=== PATIENT | female | born 1965 | race Caucasian/White ===

== ENCOUNTER → 2017-10-27 | Outpatient (CLI) | payer BC ==
[~2017-10-27] MED LIST: CYAN10005 PO; FERR1TAB13 PO; LANS15CA6 PO; LEVO88TA3 PO; SERT50TA PO
[2017-10-27 15:02] VITALS: BP 160/95; PULSE 74; TEMP 36.9; O2SAT 98
--- NOTE | 2017-10-27 16:37 | Radiation Oncology Follow-Up ---
Radiation Oncology Follow-Up Date of Visit Oct 27, 2017. Reason For Visit One-month follow-up and cancer survivorship care plan Radiation Completion Date 09/29/17 Diagnosis (1) Breast cancer Status: Acute Onset Date: 01/20/2017 Histology Subtype: Invasive carcinoma Stage: l (A) Permanent Comment: Abnormal right breast mammogram Status post core needle biopsy 01/20/2017 Invasive carcinoma grade 3, multifocal Estrogen receptor negative, progesterone receptor negative, and HER-2/anitha positive Status post needle localization partial mastectomy and sentinel lymph node biopsy 02/15/2017 Stage pT1b pN0 Status post completion of systemic chemotherapy with 6 cycles of Taxotere, carboplatin, and Herceptin She'll continue Herceptin for 1 year Status post completion of radiation therapy 09/29/2017. She received 6640 cGy Last Edited By: Marga Hester on Oct 10, 2017 15:39 History of Present Illness Ms. Hollis presented with an abnormal mammogram on 01/07/2017 which revealed asymmetry in the right breast. The patient was brought back on 01/17/2017 and underwent a right unilateral diagnostic breast mammogram and ultrasound which revealed 2 areas of focal asymmetry at 12: 00 suspicious for abnormality. The patient underwent an ultrasound-guided biopsy of the right breast lesions on and pathology confirmed invasive ductal carcinoma that was grade 3 for both lesions at 12:00 in the right breast. The tumor was estrogen receptor negative, progesterone receptor negative and HER-2 positive. Additionally, there was evidence of ductal carcinoma in situ that was high-grade at both biopsy sites. The patient underwent a right breast lumpectomy and sentinel lymph node biopsy by Dr. Natasha Quezada on 02/15/2017 which revealed multifocal invasive ductal carcinoma that measured 7 mm in the greatest dimension. The invasive ductal carcinoma was grade 3 and there was ductal carcinoma in situ also present which was high-grade. Margins were negative for both invasive ductal carcinoma and ductal carcinoma in situ. There is no evidence of lymphovascular space invasion. 2 sentinel lymph nodes were removed and both were negative for metastatic carcinoma. The patient was staged as pathologic [id number], stage IA. The patient was seen by Dr. Jeff Canales from medical oncology who recommended [facility] chemotherapy with adjuvant Herceptin for a year. We are now seeing the patient in consultation to discuss the role of radiation therapy. She completed her course of chemotherapy. The Herceptin will continue for a year. She return to our office and underwent a CT simulation. She then completed radiation therapy 09/29/2017. She received 6640 cGy. Interim History She has been doing well over the past month. These skin irritation that occurred at the end of treatment has resolved. She denies any masses or tenderness and no change of the axilla. She has had no swelling of her arm. She continues on Herceptin every 3 weeks. She is tolerating this well. She had been a patient of Dr. Vasquez and will be following up with Dr. Ramires. Allergies Coded Allergies: Latex1 -Allergic Contact Dermititis (Verified Allergy, Unknown, RASH, ) Home Medications Scheduled Cyanocobalamin (Vitamin B-12), 2,000 MCG PO DAILY Ferrous Sulfate (Kp Ferrous Sulfate), 1 TAB PO DAILY Lansoprazole (Prevacid), 15 MG PO DAILY Levothyroxine Sodium (Levothyroxine Sodium), 1 TAB PO DAILY Sertraline (Zoloft), 1 TAB PO DAILY Review of Systems Gastrointestinal: Symptoms: WNL Oral: Symptoms: No Problems Respiratory: Symptoms: WNL Urinary: Symptoms: WNL Skin: Symptoms: No Problems Breast: Right Upper Arm Measurement: 27.5 Right Mid Arm Measurement: 22.8 Right Wrist Measurement: 15.5 Left Upper Arm Measurement: 28.3 Left Mid Arm Measurement: 24.0 Left Wrist Measurement: 15.5 Arm Dominence: Right Additional Notes: She completed a distress management report and answered "no" to all questions. Physical Exam Vital Signs Date Time Temp Pulse Resp B/P (MAP) Pulse Ox O2 Delivery O2 Flow Rate FiO2 10/27/17 15:02 36.9 74 16 160/95 98 ECOG Performance Status: 0 Fatigue: None General Appearance: no apparent distress Eyes: normal inspection, EOMI ENT: normal ENT inspection, hearing grossly normal Neck: no adenopathy, thyroid normal Respiratory/Chest: lungs clear, no respiratory distress, no accessory muscle use Breast: Breast examination reveals well-healed incisions of the right breast. There are no masses or tenderness and no axillary adenopathy. She has a small amount of fibrous tissue in the area of the incision. She has resolving hyperpigmentation. There are no skin retractions or nipple changes. Using the [place] score cosmesis she has a good outcome. The left breast showed no masses or tenderness and no axillary adenopathy. Cardiovascular: regular rate, rhythm, no gallop, no murmur Extremities: no pedal edema Neurologic/Psychiatric: no motor/sensory deficits, alert, normal mood/affect Skin: warm/dry Pain Management Patient Reports Pain: No Pain Location: None Patient Preferred Pain Scale: 0 - 10 Initial Pain Intensity: 0.0 Pain Management Plan She denies pain therefore requires no pain management. Laboratory Laboratory Results: not applicable Pathology Pathology Results: not applicable Imaging Imaging Studies: not applicable Assessment & Plan Plan: Continue regular follow-up with Dr. Quezada, Dr. Ramires, and her primary care physician. She will need scheduled for follow-up mammography. She is seeing Dr. Quezada in November and wants to wait till that appointment to get her mammogram scheduled. Today we completed the cancer survivorship care plan. A copy of the document was given to the patient. She was given a survivorship booklet. We asked her to return to our office in 6 months. She may call if she has any questions or concerns in the interim. Total Time In Follow-Up I spent 20 minutes speaking to the patient in performing examination. I spent 20 minutes reviewing information, preparing the survivorship document, and completing this note. Copy To Natasha Quezada MD; Jennifer Pena M.D.; Lonny Ramires M.D. Problem Qualifiers (1) Breast cancer: Breast location: upper outer quadrant of breast Estrogen receptor status: negative Patient sex: female Laterality: right Qualified Codes: C50.411 - Malignant neoplasm of upper-outer quadrant of right female breast; Z17.1 - Estrogen receptor negative status [ER-]
== END | disposition home or self-care (01) ==
LOC: C.ONC 14:47
PROVIDERS: ATTEND Physician Assistant Medical
DX: Z08 Encounter for follow-up examination after completed treatment for malignant neoplasm (principal); Z92.3 Personal history of irradiation; Z85.3 Personal history of malignant neoplasm of breast

== ENCOUNTER → 2018-04-26 | Outpatient (CLI) | payer BC ==
[~2018-04-26] MED LIST changes: +POTA10CA28 PO; +SERT-234 PO
[2018-04-26 13:57] VITALS: BP 135/80; PULSE 65; TEMP 36.5; O2SAT 99
--- NOTE | 2018-04-26 16:09 | Radiation Oncology Follow-Up ---
Radiation Oncology Follow-Up Date of Visit Apr 26, 2018. Reason For Visit Six-month follow-up Radiation Completion Date finished 09-29-2017 Diagnosis (1) Breast cancer Status: Acute Onset Date: 01/20/2017 Histology Subtype: Invasive carcinoma Stage: l (A) Permanent Comment: Abnormal right breast mammogram Status post core needle biopsy 01/20/2017 Invasive carcinoma grade 3, multifocal Estrogen receptor negative, progesterone receptor negative, and HER-2/anitha positive Status post needle localization partial mastectomy and sentinel lymph node biopsy 02/15/2017 Stage pT1b pN0 Status post completion of systemic chemotherapy with 6 cycles of Taxotere, carboplatin, and Herceptin She'll continue Herceptin for 1 year Status post completion of radiation therapy 09/29/2017. She received 6640 cGy Last Edited By: Marga Hester on Oct 10, 2017 15:39 History of Present Illness Ms. Hollis presented with an abnormal mammogram on 01/07/2017 which revealed asymmetry in the right breast. The patient was brought back on 01/17/2017 and underwent a right unilateral diagnostic breast mammogram and ultrasound which revealed 2 areas of focal asymmetry at 12: 00 suspicious for abnormality. The patient underwent an ultrasound-guided biopsy of the right breast lesions on and pathology confirmed invasive ductal carcinoma that was grade 3 for both lesions at 12:00 in the right breast. The tumor was estrogen receptor negative, progesterone receptor negative and HER-2 positive. Additionally, there was evidence of ductal carcinoma in situ that was high-grade at both biopsy sites. The patient underwent a right breast lumpectomy and sentinel lymph node biopsy by Dr. Natasha Quezada on 02/15/2017 which revealed multifocal invasive ductal carcinoma that measured 7 mm in the greatest dimension. The invasive ductal carcinoma was grade 3 and there was ductal carcinoma in situ also present which was high-grade. Margins were negative for both invasive ductal carcinoma and ductal carcinoma in situ. There is no evidence of lymphovascular space invasion. 2 sentinel lymph nodes were removed and both were negative for metastatic carcinoma. The patient was staged as pathologic [id number], stage IA. The patient was seen by Dr. Jeff Canales from medical oncology who recommended [facility] chemotherapy with adjuvant Herceptin for a year. We are now seeing the patient in consultation to discuss the role of radiation therapy. She completed her course of chemotherapy. The Herceptin will continue for a year. She return to our office and underwent a CT simulation. She then completed radiation therapy 09/29/2017. She received 6640 cGy. Interim History She has been doing well over the past 6 months. She denies any changes to her breast. She is noted no masses or tenderness no change of the axilla. She has had no swelling of her arm. She is up-to-date on mammography. She completed 1 year of Herceptin. She had a mammogram February 03, 2018. There was no mammographic evidence of malignancy. This was given a BI-RADS Category 2. Allergies Coded Allergies: Latex1 -Allergic Contact Dermititis (Verified Allergy, Unknown, RASH, ) Home Medications Scheduled Cyanocobalamin (Vitamin B-12), 2,000 MCG PO DAILY Ferrous Sulfate (Kp Ferrous Sulfate), 1 TAB PO DAILY Levothyroxine Sodium (Levothyroxine Sodium), 1 TAB PO DAILY Potassium Chloride (Micro-K Ext Rel), 10 MEQ PO DAILY Sertraline (Zoloft), 1 TAB PO DAILY Review of Systems Gastrointestinal: Symptoms: WNL Oral: Symptoms: No Problems Respiratory: Symptoms: WNL Urinary: Symptoms: WNL Skin: Other Skin Symptoms: has an incision on right dorsal wrist , steri strips are intact Breast: Right Upper Arm Measurement: 27.0 Right Mid Arm Measurement: 22.0 Right Wrist Measurement: 15.6 Left Upper Arm Measurement: 28.5 Left Mid Arm Measurement: 22.0 Left Wrist Measurement: 15.4 Arm Dominence: Right Patient Cosmetic Evaluation: Excellent Staff Cosmetic Evalaluation: Excellent Physical Exam Vital Signs Date Time Temp Pulse Resp B/P (MAP) Pulse Ox O2 Delivery O2 Flow Rate FiO2 04/26/18 13:57 36.5 65 16 135/80 99 Fatigue: None General Appearance: no apparent distress Eyes: normal inspection, EOMI ENT: normal ENT inspection, hearing grossly normal Neck: no adenopathy, thyroid normal Respiratory/Chest: lungs clear, no respiratory distress, no accessory muscle use Breast: Breast examination reveals well-healed incisions of the right breast. There is slight hyperpigmentation. There are no masses or tenderness and no axillary adenopathy. She has no skin retractions or nipple changes. Using the [place] score cosmesis she has an excellent outcome. Left breast showed no masses or tenderness and no axillary adenopathy. Cardiovascular: regular rate, rhythm, no gallop, no murmur Extremities: no pedal edema Neurologic/Psychiatric: no motor/sensory deficits, alert, normal mood/affect Skin: warm/dry Pain Management Patient Reports Pain: No Side: Bilateral Patient Preferred Pain Scale: 0 - 10 Initial Pain Intensity: 0.0 Pain Management Plan She denies pain therefore requires no pain management. Laboratory Laboratory Results: not applicable Pathology Pathology Results: were reviewed, and pertinent findings noted in HPI Imaging Imaging Studies: were reviewed Imaging Comments Reviewed in the interim history. Assessment & Plan Plan: She was seen and examined by Dr. Ramires. Continue follow-up mammography. In reviewing medical oncology notes it was recommended that she have mammogram in July 2018. I reviewed this with her. She is going to call medical oncology to schedule the follow-up mammogram. Continue follow-up with her primary care provider and breast surgeon. We asked her to return to our office in 1 year. She may call if she has any questions or concerns in the interim. Assessment & Plan (Attending) I agree with note created by Marga Hester PA-C. I reviewed the patient's chart and information with her. I have examined and evaluated the patient. I reviewed relevant clinical information and answered the patient's and/or family' s questions. FILLETER Total Time In Follow-Up I spent 20 minutes speaking to the patient in performing examination. I spent 15 minutes reviewing information and completing this note. [place] Total Time (Attending) In Follow-Up I spent 15 minutes examining and counseling the patient. FILLETER Copy To Natasha Quezada MD; Jennifer Pena M.D.; Lonny Ramires M.D. Problem Qualifiers (1) Breast cancer: Breast location: upper outer quadrant of breast Estrogen receptor status: negative Patient sex: female Laterality: right Qualified Codes: C50.411 - Malignant neoplasm of upper-outer quadrant of right female breast; Z17.1 - Estrogen receptor negative status [ER-]
== END | disposition home or self-care (01) ==
LOC: C.ONC 13:50
PROVIDERS: ATTEND Physician Assistant Medical
DX: Z08 Encounter for follow-up examination after completed treatment for malignant neoplasm (principal); Z92.3 Personal history of irradiation; Z85.3 Personal history of malignant neoplasm of breast